=== PATIENT | female | born 1940 | race Caucasian/White ===

== ENCOUNTER → 2016-10-10 | Day surgery (SDC) | payer MEDICARE ==
[~2016-10-10] VITALS: Ht 167.6 cm; Wt 72.6 kg
[~2016-10-10] MED LIST: ACETAMINOPHEN 325 MG TAB PO PRN; ALBU17IN INH; ALLE180T33 PO; ASPI1TAB PO; ATEN25TA PO; AcetaZOLAMIDE 500 MG ER CAP PO ONE; BIMA01SOL OU; BRIN1OPH OU; CEFUROXIME 1MG/0.1ML INTRACAMERAL INJ As Ordered ONE; CYCLOPENTOLATE 2% OPHTH SOLN 2ML BTL OS ONE; HEALON DUET (HEALON 10MG/ML 0.55ML & HEALON ENDOCOAT 30MG/ML 0.85ML) As Ordered ONE; KETOROLAC 0.5% OPHTH SOLN OS ONE; LIDOCAINE 1% SDV 5 ML VIAL As Ordered ONE; LIDOCAINE 4% INJ 5 ML AMP OU ONE; LOSA100T8 PO; LR 500 ML IV ONE; MIDAZOLAM INJ 2 MG/2 ML VIAL (J2250) As Ordered ONE; NEXI40CA PO; OFLOXACIN 0.3 % (OCUFLOX) OPTH SOL 5ML OS ONE; PHENYLEPHRINE 2.5% OPHTH SOL 2ML OS ONE; POVIDONE-IODINE 5% OPHTH PREP SOL 30ML As Ordered ONE; PRAV20TA2 PO; PROPARACAINE 0.5% OPHTH SOL 15ML OS PRN; TRIMETHOBENZAMIDE 300 MG CAP PO PRN; TROPICAMIDE 1% OPHTH SOLN 2ML OS ONE; fentaNYL 100 MCG/2 ML INJECTION (J3010) As Ordered ONE
[2016-10-10 12:01] VITALS: BP 168/67
--- NOTE | 2016-10-11 07:43 | RO ---
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 PROCEDURE: Phacoemulsification with intraocular lens implantation of PCB00 power 11.5, endocyclophotocoagulation and placement of the Glaukos iStent implant in the left eye. SURGEON: Windy Lamar MD SCRAPER HAND: None. ANESTHESIA: COMPLICATIONS: None. DESCRIPTION OF PROCEDURE: The patient was brought to the operating room and laid in supine position. The left eye was prepped and draped in a sterile fashion for opthalmic surgery and a lid speculum was placed. Side port incision was made and EndoCoat was injected into the anterior chamber. This was followed by temporal clear corneal incision with a 2.5 mm Keratome and capsulorrhexis was done followed by hydrodissection. This was followed by phacoemulsification in divide and conquer method within the capsular bag followed by aspiration of the cortical material. Healon was then placed in the capsular bag and intraocular lens inserted. Healon was then placed in the ciliary sulcus and with the help of the EndoProbe, the ciliary processes were visualized on the video screen and endocyclophotocoagulation was carried out for 280 degrees at 0.25 mV. Good results were noted by the shrinking of the ciliary processes. Healon was then placed into the anterior chamber. Patient's head was turned away from the surgeon, microscope turned toward the surgeon and under high magnification with the help of the Gonio lens, the iStent was placed in the inferonasal quadrant. Good blood reflex was noted. Excess viscoelastic was aspirated. Wound was hydrated. Intracameral moxifloxacin was given and lid speculum removed. Patient discharged to the recovery room in stable condition.
== END | disposition home or self-care (01) ==
LOC: M SDC 08:50
PROVIDERS: ATTEND Ophthalmology
DX: H25.9 Unspecified age-related cataract (principal); H40.812 Glaucoma with increased episcleral venous pressure, left eye; I10 Essential (primary) hypertension; E78.5 Hyperlipidemia, unspecified; K21.9 Gastro-esophageal reflux disease without esophagitis; Z79.82 Long term (current) use of aspirin; Z79.899 Other long term (current) drug therapy
CPT/HCPCS: 66183; 66711; 66984; C1783; J2250; J3010; V2632

== ENCOUNTER 2016-11-07 10:47 | Day surgery (SDC) | payer MEDICARE ==
[~2016-11-07] VITALS: Ht 167.6 cm; Wt 72.6 kg
[~2016-11-07 10:47] MED LIST changes: -AcetaZOLAMIDE 500 MG ER CAP PO ONE; +BSS with VANC/TOB/EPI for EYE CASES IR ONE; +CYCLOPENTOLATE 2% OPHTH SOLN 2ML BTL OD ONE; -CYCLOPENTOLATE 2% OPHTH SOLN 2ML BTL OS ONE; -KETOROLAC 0.5% OPHTH SOLN OS ONE; +LIDOCAINE 3.5 % 1ML OPHTH TOPICAL GEL OU ONE; -LIDOCAINE 4% INJ 5 ML AMP OU ONE; -LR 500 ML IV ONE; -MIDAZOLAM INJ 2 MG/2 ML VIAL (J2250) As Ordered ONE; +OFLOXACIN 0.3 % (OCUFLOX) OPTH SOL 5ML OD ONE; -OFLOXACIN 0.3 % (OCUFLOX) OPTH SOL 5ML OS ONE; +PHENYLEPHRINE 2.5% OPHTH SOL 2ML OD ONE; -PHENYLEPHRINE 2.5% OPHTH SOL 2ML OS ONE; +PROPARACAINE 0.5% OPHTH SOL 15ML OD PRN; -PROPARACAINE 0.5% OPHTH SOL 15ML OS PRN; -TRIMETHOBENZAMIDE 300 MG CAP PO PRN; +TROPICAMIDE 1% OPHTH SOLN 2ML OD ONE; -TROPICAMIDE 1% OPHTH SOLN 2ML OS ONE; -fentaNYL 100 MCG/2 ML INJECTION (J3010) As Ordered ONE
[2016-11-07] MEDS ORDERED: LR 1,000 ML IV ONE (11:00)
[2016-11-07] MEDS ORDERED: HEALON DUET (HEALON 10MG/ML 0.55ML & HEALON ENDOCOAT 30MG/ML 0.85ML) As Ordered ONE (13:12)
[2016-11-07] MEDS ORDERED: fentaNYL 100 MCG/2 ML INJECTION (J3010) As Ordered ONE (13:32)
[2016-11-07] MEDS ORDERED: MIDAZOLAM INJ 2 MG/2 ML VIAL (J2250) As Ordered ONE (13:32)
[2016-11-07 13:55] VITALS: BP 137/64
[2016-11-07] MEDS ORDERED: KETOROLAC 0.5% OPHTH SOLN OD ONE (14:00)
[2016-11-07] MEDS ORDERED: TRIMETHOBENZAMIDE 300 MG CAP PO PRN (14:00)
[2016-11-07] MEDS ORDERED: AcetaZOLAMIDE 500 MG ER CAP PO ONE (14:00)
--- NOTE | 2016-11-09 08:57 | RO ---
DATE OF SURGERY: 11/07/2016 PREOPERATIVE DIAGNOSES: Cataract right eye and glaucoma right eye. POSTOPERATIVE DIAGNOSES: Cataract right eye and glaucoma right eye. PROCEDURE: Phacoemulsification with intraocular lens implantation right eye, along with endocyclophotocoagulation and placement of the iStent in the right eye. SURGEON: Dr. Windy Lamar LENS BLANK GAUGER: None. COMPLICATIONS: None. DESCRIPTION OF PROCEDURE: Procedure in detail: The patient was brought to the operating room and laid in supine position. The right eye was prepped and draped in a sterile fashion for ophthalmic solution, and a lid speculum was placed. A sideport incision was made, and EndoCoat was injected into the anterior chamber. A temporal clear corneal incision was then made with a 2.5 mm keratome, followed by capsulorrhexis. This was followed by hydrodissection and phacoemulsification in a [id number] method within the capsular bag. Cortical material was then aspirated using irrigation aspiration cannula, followed by injection of the Healon into the capsular bag and injection of the Hoya implant. Healon was then placed in the ciliary sulcus, and the ciliary processes were viewed on the video screen with the help of the EndoProbe and endocyclophotocoagulation carried out at 280 degrees at 0.25 mW. Good results were noted by the shrinking of the ciliary processes. Healon was then placed into the anterior chamber and under the guidance of the goniolens with the patient's head turned away, under high mag, iStent was placed in the infranasal quadrant. Good reflux was noted. Excess viscoelastic aspirated. Wound hydrated. No leaks were noted. The patient returned to the recovery room after removing the lid speculum.
== END 2016-11-07 14:25 | disposition home or self-care (01) ==
LOC: M SDC 10:47
PROVIDERS: ATTEND Ophthalmology
DX: H25.9 Unspecified age-related cataract (principal); H40.811 Glaucoma with increased episcleral venous pressure, right eye; I10 Essential (primary) hypertension; E78.5 Hyperlipidemia, unspecified; K21.9 Gastro-esophageal reflux disease without esophagitis; Z79.82 Long term (current) use of aspirin; Z79.899 Other long term (current) drug therapy; R13.10 Dysphagia, unspecified
CPT/HCPCS: 66183; 66711; 66984; C1783; J2250; J3010; V2632